=== PATIENT | male | born 1995 | race Caucasian/White ===

== ENCOUNTER 2019-07-09 07:26 | Emergency (ER) | payer SELFPAY ==
[2019-07-09 07:58] VITALS: BP 124/65
[2019-07-09] MEDS ORDERED: Tetan/Diph/Pertus SYR(Tdap)* 0.5 ML SYR(BOOSTRIX) use SYR IM ONE (08:01)
--- NOTE | 2019-07-09 08:58 | ED ---
Upper Extremity Pain - HPI Summary HPI Summary: 24 yr old male with the complaint of laceration to the left 5th finger. He cut his finger just prior to arrival here today when his marissa knife folded back on his finger when opening a can of diesel exhaust additive. He denies numbness in the finger. He has no other complaints. He does not want needles or stitches. - History of Current Complaint Chief Complaint: UCLaceration Stated Complaint: LEFT HAND LACERATION Time Seen by Provider: 07/09/19 08:01 - Allergies/Home Medications Allergies/Adverse Reactions: Allergies Allergy/AdvReac Type Severity Reaction Status Date / Time No Known Allergies Allergy Verified 07/09/19 07:56 PMH/Surg Hx/FS Hx/Imm Hx Infectious Disease History: No Infectious Disease History: Denies: Traveled Outside the [place] in Last 30 Days - Family History Known Family History: Positive: None - Social History Occupation: Employed Full-time Alcohol Use: None Substance Use Type: Reports: None Smoking Status (MU): Never Smoked Tobacco Review of Systems Constitutional: Negative Positive: Other - lacerations All Other Systems Reviewed And Are Negative: Yes Physical Exam Triage Information Reviewed: Yes Vital Signs On Initial Exam: Initial Vitals Temp Pulse Resp BP Pulse Ox 98.0 F 59 14 124/65 100 07/09/19 07:55 07/09/19 07:55 07/09/19 07:55 07/09/19 07:55 07/09/19 07:55 Vital Signs Reviewed: Yes Appearance: Positive: Well-Appearing, No Pain Distress Skin: Positive: Warm Head/Face: Positive: Normal Head/Face Inspection Eyes: Positive: EOMI ENT: Positive: Normal ENT inspection Neck: Positive: Nontender Respiratory/Lung Sounds: Positive: Clear to Auscultation, Breath Sounds Present Cardiovascular: Positive: RRR. Negative: Murmur Abdomen Description: Negative: Distended Musculoskeletal: Positive: Strength/ROM Intact, Other - left 5th finger with laceration 1 cm long over the medial dorsal side of the PIP joint area. He has normal 2 point discrimination. he has good capillary refill. No joint involvement. Neurological: Positive: Alert, Oriented to Person Place, Time, CN Intact II-III Psychiatric: Positive: Normal Procedures - Splinting Left 5th Digit Location: left hand 5th digit Pre-Made Type: metal Splint: volar Pre-Proc Neuro Vasc Exam: normal Post-Proc Neuro Vasc Exam: normal Splint Applied by Provider: Alonzo Oconnor - Vital Signs Vital Signs Temp Pulse Resp BP Pulse Ox 07/09/19 07:55 98.0 F 59 14 124/65 100 - Laboratory Lab Statement: Any lab studies that have been ordered have been reviewed, and results considered in the medical decision making process. Course/Dx - Course Course Of Treatment: Male with 1 cm laceration to left 5th finger. The finger was irrigated by nursing. The patient does not want needles or sutures. His wound is well approximated and clean. I recommend that he keep the finger in the splint that has been applied by me for the next 10 days so that the wound is in its best approximated state for healing. He will keep wound clean daily with dressing changes and bacitracin. - Diagnoses Provider Diagnoses: Laceration of left little finger Discharge ED - Sign-Out/Discharge Documenting (check all that apply): Patient Departure All imaging exams completed and their final reports reviewed: No Studies - Discharge Plan Condition: Good Disposition: HOME Prescriptions: Cephalexin CAP* [Keflex CAP*] 500 mg PO TID #15 cap Patient Education Materials: Laceration (ED) Referrals: No Primary Care Phys,NOPCP [Primary Care Provider] - [facility]Outside] - 2 Days Additional Instructions: keep wound clean and dry. Clean twice a day with running clean water. Apply bacitracin antibiotic ointment twice a day with clean dressing. Be sure to wear the splint for the next ten days to promote good healing. - Billing Disposition and Condition Condition: GOOD Disposition: Home
--- NOTE | 2019-07-09 09:21 | ED ---
Progress - Progress Note Progress Note: negative xray on final read Course/Dx - Course Course Of Treatment: Male with 1 cm laceration to left 5th finger. The finger was irrigated by nursing. The patient does not want needles or sutures. His wound is well approximated and clean. I recommend that he keep the finger in the splint that has been applied by me for the next 10 days so that the wound is in its best approximated state for healing. He will keep wound clean daily with dressing changes and bacitracin. - Diagnoses Provider Diagnoses: Laceration of left little finger Discharge ED - Sign-Out/Discharge Documenting (check all that apply): Patient Departure All imaging exams completed and their final reports reviewed: Yes - Discharge Plan Condition: Good Disposition: HOME Prescriptions: Cephalexin CAP* [Keflex CAP*] 500 mg PO TID #15 cap Patient Education Materials: Laceration (ED) Referrals: [facility] [Outside] - 2 Days No Primary Care Phys,NOPCP [Primary Care Provider] - Additional Instructions: keep wound clean and dry. Clean twice a day with running clean water. Apply bacitracin antibiotic ointment twice a day with clean dressing. Be sure to wear the splint for the next ten days to promote good healing. - Billing Disposition and Condition Condition: GOOD Disposition: Home
== END 2019-07-09 09:10 | disposition home or self-care (01) ==
LOC: UCCORT 07:26
DX: S61.217A Laceration without foreign body of left little finger without damage to nail, initial encounter (principal); W26.0XXA Contact with knife, initial encounter; Y93.89 Activity, other specified; Y92.9 Unspecified place or not applicable; Z23 Encounter for immunization
CPT/HCPCS: 12001; 90471; 90715; 99203; G0463